=== PATIENT | male | born 1955 | race Caucasian/White ===

== ENCOUNTER → 2018-05-01 08:58 | Outpatient (CLI) | payer OTHER, MEDICAID, SELFPAY ==
[2018-05-01 09:38] LABS: Add Manual Diff / Slide Review NO; Basophils Percent Auto 1.2 % (0-2); Eosinophils Percent Auto 4.6 % (2-4); Hematocrit 46.7 % (41-53); Hemoglobin 16.4 g/dL (13.5-17.5); Lymphocytes Percent Auto 17.2 % (25-40); Mean Corpuscular HGB Conc 35.2 % (30-36); Mean Corpuscular Hemoglobin 31.6 PG (26-34); Mean Corpuscular Volume 89.8 fL (80-100); Monocytes Percent Auto 8.7 % (3-14); Neutrophils Absolute Auto 3300 /uL (1500-7000); Neutrophils Percent Auto 68.3 % (50-75); Platelet Count 205 X10^3/uL (150-400); White Blood Cell Count 4.9 X10^3/uL (4.5-11.0)
[2018-05-01 10:21] LABS: Appearance Urine UA CLEAR; Bilirubin Urine UA NEGATIVE (NEGATIVE); Color Urine UA YELLOW; Glucose Urine UA NEGATIVE (Normal); Ketones Urine UA NEGATIVE (NEGATIVE); Leukocyte Esterase Urine UA NEGATIVE (NEGATIVE); Nitrite Urine UA NEGATIVE (Negative); Occult Blood Urine UA NEGATIVE (Negative); Protein Urine UA NEGATIVE (Negative); Urobilinogen Urine UA 0.2 E.U./dL (0.2); pH Urine UA 7.5 (4.5-8.0)
[2018-05-01 10:36] LABS: Thyroid Stimulating Hormone 3.26 uIU/mL (0.47-4.68)
[2018-05-01 10:53] LABS: Alanine Aminotransferase 28 IU/L (21-72); Albumin Globulin Ratio 1.5 (1.0-2.8); Alkaline Phosphatase 69 U/L (38-126); Aspartate Aminotransferase 32 IU/L (17-59); Blood Urea Nitrogen 14 mg/dL (9-20); Calcium 9.5 mg/dL (8.4-10.2); Carbon Dioxide 27 mmol/L (22-32); Chloride 105 mmol/L (98-107); Cholesterol 143 mg/dL (140-199); Estimated Glomerular Filt Rate > 60.0 mL/min (>60); Globulin 2.7 g/dL (1.7-4.1); Glucose 91 mg/dL (80-110); HDL Cholesterol 40 mg/dL (40-60); LDL Cholesterol Calculated 87 mg/dL (<100); Potassium 4.8 mmol/L (3.4-5.1); Sodium 143 mmol/L (137-145); Total Protein 6.7 g/dL (6.3-8.2); Triglycerides 79 mg/dL (35-150)
[2018-05-01 11:26] LABS: HEMOLYSIS < 15 (0-50); Prostate Specific Antigen Scrn 3.07 ng/mL (0.1-4.0)
[2018-05-01 11:44] LABS: Vitamin B12 251 pg/mL (239-931)
== END ==
PROVIDERS: PCP Family Medicine; Visit Provider Family Medicine
DX: N40.0 Benign prostatic hyperplasia without lower urinary tract symptoms (principal); Z00.00 Encounter for general adult medical examination without abnormal findings; Z86.39 Personal history of other endocrine, nutritional and metabolic disease; Z13.220 Encounter for screening for lipoid disorders
CPT/HCPCS: 36415; 80053; 80061; 81003; 82607; 84443; 85025; G0103

== ENCOUNTER → 2018-07-31 09:05 | Outpatient (CLI) | payer OTHER, MEDICAID, SELFPAY ==
--- NOTE | 2018-07-31 09:06 | DI.RAD.S_ITS ---
PROCEDURE: XR RIBS LT MIN 3V W CXR1V INDICATIONS: left lower rib tenderness TECHNIQUE: 2 views of the left ribs were acquired, along with a single view chest. COMPARISON: None. FINDINGS: Surgical changes and devices: None. Bones and chest wall: Mildly displaced left anterior ninth rib fracture is present. No suspicious bony lesions. Overlying soft tissues appear unremarkable. Lungs and pleura: No pleural effusions or pneumothorax. Lungs appear clear. Mediastinum: Mediastinal contours appear normal. Heart size is normal. IMPRESSION: Mildly displaced left anterior ninth rib fracture. Dictated by: Lillian Reynoso M.D. on 07/31/2018 at 10:21 Approved by: Lillian Reynoso M.D. on 07/31/2018 at 10:24
== END ==
PROVIDERS: PCP Family Medicine; Visit Provider Physician Assistant
DX: R07.81 Pleurodynia (principal); S22.32XA Fracture of one rib, left side, initial encounter for closed fracture
CPT/HCPCS: 71101

== ENCOUNTER → 2020-01-07 14:04 | Outpatient (CLI) | payer OTHER, MEDICAID, SELFPAY ==
--- NOTE | 2020-01-07 14:07 | DI.RAD.S_ITS ---
PROCEDURE: XR HAND RT MIN 3V INDICATIONS: Pain in Right thumb TECHNIQUE: 3 views of the hand(s) acquired. COMPARISON: None. FINDINGS: Bones: No fractures or dislocations. Carpal bones are normally aligned. No suspicious bony lesions. Soft tissues: No suspicious soft tissue calcifications. IMPRESSION: No trauma found, source of pain in the thumb is not identified. Dictated by: Newton Shipley M.D. on 01/07/2020 at 15:58 Approved by: Newton Shipley M.D. on 01/07/2020 at 15:58
== END ==
PROVIDERS: PCP Family Medicine; Referring Provider Family Medicine; Visit Provider Family Medicine
DX: M79.644 Pain in right finger(s) (principal); G89.29 Other chronic pain
CPT/HCPCS: 73130

== ENCOUNTER → 2020-01-08 08:44 | Outpatient (CLI) | payer OTHER, MEDICAID, SELFPAY ==
[2020-01-08 09:29] LABS: Add Manual Diff / Slide Review NO; Basophils Absolute Auto 100 /uL (0-100); Basophils Percent Auto 1.2 % (0-2); Eosinophils Absolute Auto 200 /uL (0-450); Eosinophils Percent Auto 3.2 % (2-4); Hematocrit 48.7 % (41-53); Hemoglobin 17.1 g/dL (13.5-17.5); Lymphocytes Absolute Auto 900 /uL (1100-4500); Mean Corpuscular HGB Conc 35.1 % (30-36); Mean Corpuscular Hemoglobin 31.9 PG (26-34); Mean Corpuscular Volume 90.9 fL (80-100); Monocytes Absolute Auto 500 /uL (0-900); Monocytes Percent Auto 9.6 % (3-14); Neutrophils Absolute Auto 3400 /uL (1500-7000); Platelet Count 192 X10^3/uL (150-400); Red Blood Cell Count 5.35 X10^6/uL (4.5-5.9)
[2020-01-08 09:55] LABS: BUN Creatinine Ratio 17.1 (6-22); Blood Urea Nitrogen 19 mg/dL (9-20); Calcium 9.6 mg/dL (8.4-10.2); Carbon Dioxide 28 mmol/L (22-32); Chloride 105 mmol/L (98-107); Cholesterol 144 mg/dL (140-199); Estimated Glomerular Filt Rate > 60.0 mL/min (>60); Glucose 91 mg/dL (80-110); HDL Cholesterol 52 mg/dL (40-60); HEMOLYSIS < 15 (0-50); LDL Cholesterol Calculated 80 mg/dL (<100); Potassium 4.7 mmol/L (3.4-5.1); Sodium 138 mmol/L (137-145); Triglycerides 59 mg/dL (35-150)
== END ==
PROVIDERS: PCP Family Medicine; Referring Provider Family Medicine; Visit Provider Family Medicine
DX: Z13.220 Encounter for screening for lipoid disorders (principal)
CPT/HCPCS: 36415; 80048; 80061; 85025

== ENCOUNTER → 2020-05-17 13:24 | Outpatient (CLI) | payer OTHER, MEDICAID, SELFPAY ==
[2020-05-17 15:48] LABS: COVID19 -Nasal RAPID Negative (Negative)
== END ==
PROVIDERS: PCP Family Medicine; Visit Provider Surgery
DX: Z01.812 Encounter for preprocedural laboratory examination (principal); Z20.822 Contact with and (suspected) exposure to COVID-19
CPT/HCPCS: 87635; C9803

== ENCOUNTER 2020-05-19 12:46 | Day surgery (SDC) | payer OTHER, MEDICAID, SELFPAY ==
[2020-05-19] VITALS (7 sets, daily range): BP systolic 103–146; BP diastolic 60–83; PULSE 56–77; RESP 12–18; TEMP 36.4–37.1; O2SAT 95–100; BMI 25.8
[2020-05-19] MEDS: LACTATED RINGERS 1,000 ML 200 ML IV (13:30)
--- NOTE | 2020-05-19 14:03 | PM.HP.1 ---
History of Present Illness History of Present Illness Date Patient Seen: 05/19/20 Time Patient Seen: 14:03 Chief complaint: SCREENING COLONOSCOPY Narrative: The patient presents for colorectal sreening. He had previous colonoscopy normal 14 years ago. No personal or family history of colon cancer. On further history denies any recent gastrointestinal symptoms. No nausea, vomiting, abdominal pain, loss of appetite, unexplained weight loss, change in bowel habits, diarrhea, constipation, melena, hematochezia, or bright red blood per rectum. Patient History Medical History BPH loc w urin obs/LUTS Chicken pox Chronic pain of right thumb Elbow pain (~2019) Excessive cerumen in both ear canals Fractures Left elbow pain Mumps Normal physical examination, routine Screen for colon cancer Screening for hyperlipidemia Upper extremity somatic dysfunction Vision disorder Surgical History Anesthesia H/O knee surgery Hx of inguinal hernia surgery (~2010) Family & Social History Family History Father No problems noted. Mother No problems noted. Social History: household members spouse Tobacco & Substance use: Smoking Status Never smoker alcohol intake current alcohol intake frequency a few times a week Substance Use Type does not use Meds Home Medications and Allergies Home Medications Medication Instructions Recorded Confirmed Type tamsulosin 0.4 mg capsule 0.4 mg PO DAILY 07/31/18 05/19/20 History calcium phos,dibas-vitamin D3 1 tab PO DAILY 05/19/20 05/19/20 History [Vitamin D (with calcium)] Allergies Allergy/AdvReac Type Severity Reaction Status Date / Time peanut [PEANUT] Allergy Mild Hives Verified 05/19/20 13:28 walnut [WALNUT] Allergy Mild Hives Verified 05/19/20 13:28 egg Allergy Unknown Verified 05/19/20 13:28 ragweed pollen Allergy Unknown Verified 05/17/20 13:23 [RAGWEED POLLEN] Review of Systems Review of Systems Narrative: A 10 point review of systems is negative except as noted in the HPI Exam Vital Signs (past 8 hours): - 05/19/20 13:17 Temperature 98.0 F Pulse Rate 61 Respiratory Rate 15 Blood Pressure 146/83 H Pulse Oximetry 99 Oxygen Delivery Method Room Air Narrative Exam Narrative: General-no acute distress, well nourished adult male HEENT-moist mucous membranes, no scleral icterus Neck-supple, no lymphadenopathy Chest- non labored respirations, clear to auscultation bilaterally Cardiac-regular rate no peripheral edema Abdomen-soft, nontender, non distended Extremities-warm, well perfused Neurological-alert and oriented, no focal deficits Assessment & Plan Assessment & Plan narrative: The patient requires colorectal screening and colonoscopy is recommended. Technical details were discussed. Risks, benefits, alternatives explained. Risks including but not limited to myocardial infarction, aspiration, bleeding, pain, missed lesion, incomplete examination, need for further radiographic studies, colonic perforation, and need for major abdominal surgery were discussed. All questions were answered to their satisfaction, and they are in agreement with this plan.
[2020-05-19] MEDS: fentaNYL 250 MCG/5 ML INJ IV (14:36)
--- NOTE | 2020-05-19 14:36 | PM.OP.ENDO ---
Operative Date/Time/Diagnoses Date of procedure: 05/19/20 Time of procedure: 14:36 Pre-op diagnosis: screening colonoscopy Post-op diagnosis: same Procedure & Clinicians Study performed: Colonoscopy Same procedure as scheduled: Yes Indications: 64-year-old male last colonoscopy 14 years ago normal presents for routine screening Surgeon: Israel George Procedure Notes Procedure in detail: Medications: Conscious sedation using 8mg IV midazolam and 250mcg IV of fentanyl The history and physical was performed/updated and the patient is ASA class is 2. The procedure was discussed in detail with the patient. Potential risks complications including infection, bleeding, missed diagnosis, perforation, need for surgery, and were explained. Their questions were answered and informed consent was obtained. Patient was brought to the procedure room and placed standard monitoring equipment. The patient's vital signs were monitored continuously throughout the entire procedure. Prior to starting time-out was performed. The patient was placed in the left lateral recumbent position. Procedural sedation was administered. Examination began with a thorough inspection of the perianal area there was no evidence of fissures, fistulae, external hemorrhoids or cutaneous malignancy. The colonoscopy scope was then placed into the anal canal and was advanced to the cecum, which was identified by the ileocecal valve, the appendiceal orifice and the confluence of the taenia. The scope was then slowly withdrawn examining colon thoroughly in all directions, irrigating it of any residual stool. No masses or polyps Sigmoid diverticulosis The patient tolerated the procedure well. They will be discharged once criteria are met. The prep was of fair quality. The withdrawl time was 6 minutes. The sedation time was 19 minutes. Specimen(s): none sent Complications: none Impression: Diverticulosis Post-procedure Recommendations: Colonscopy in 10 years Disposition: same day surgery
[2020-05-19] MEDS: MIDAZOLAM 5 MG/5 ML VIAL IV (14:37)
--- NOTE | 2020-05-19 15:32 | SUR.PHASEII ---
pt stated he is fine to go home. Pt had 2 cups of juice. Denies any complaints and pt given discharge instructions.
== END 2020-05-19 15:24 | disposition home or self-care (01) ==
PROVIDERS: PCP Family Medicine; Referring Provider Surgery; Visit Provider Surgery
PROC: 0DJD8ZZ Inspection of Lower Intestinal Tract, Via Natural or Artificial Opening Endoscopic (ICD-10-PCS; CPT 45378; principal; 2020-05-19 13:45)
DX: Z12.11 Encounter for screening for malignant neoplasm of colon (principal); K57.30 Diverticulosis of large intestine without perforation or abscess without bleeding
CPT/HCPCS: 45378; 99152; J2250; J3010

== ENCOUNTER → 2021-10-12 09:07 | Outpatient (CLI) | payer MEDICARE, OTHER, MEDICAID, SELFPAY ==
--- NOTE | 2021-10-12 09:09 | DI.RAD.S_ITS ---
PROCEDURE: XR FINGER LT MIN 2V INDICATIONS: L ring finger P3 crush TECHNIQUE: PA hand, 2 views of the ring finger acquired. COMPARISON: None. FINDINGS: Bones: No acute fractures or dislocations. No suspicious bony lesions. Soft tissues: No suspicious soft tissue calcifications. IMPRESSION: No acute osseous abnormality. If clinical suspicion and/or symptoms persist, additional imaging with repeat plain films, or advanced imaging (e.g. CT, MRI) may be helpful for further assessment. Dictated by: Benigno Antony M.D. on 10/12/2021 at 9:39 Approved by: Benigno Antony M.D. on 10/12/2021 at 9:41
== END ==
PROVIDERS: PCP Family Medicine; Referring Provider Physician Assistant; Visit Provider Physician Assistant
DX: S67.195A Crushing injury of left ring finger, initial encounter (principal); W23.0XXA Caught, crushed, jammed, or pinched between moving objects, initial encounter
CPT/HCPCS: 73140

== ENCOUNTER → 2022-03-22 08:28 | Outpatient (CLI) | payer MEDICARE, OTHER, MEDICAID, SELFPAY ==
[2022-03-22 09:18] LABS: Add Manual Diff / Slide Review NO; Basophils Absolute Auto 0 /uL (0-100); Basophils Percent Auto 0.2 % (0-2); Eosinophils Absolute Auto 100 /uL (0-450); Eosinophils Percent Auto 2.4 % (2-4); Hematocrit 43.3 % (41-53); Hemoglobin 14.7 g/dL (13.5-17.5); Lymphocytes Absolute Auto 900 /uL (1100-4500); Lymphocytes Percent Auto 16.9 % (25-40); Mean Corpuscular Hemoglobin 30.1 PG (26-34); Mean Corpuscular Volume 88.6 fL (80-100); Monocytes Absolute Auto 500 /uL (0-900); Monocytes Percent Auto 10.4 % (3-14); Neutrophils Absolute Auto 3700 /uL (1500-7000); Neutrophils Percent Auto 70.1 % (50-75); Platelet Count 191 X10^3/uL (150-400); Red Blood Cell Count 4.89 X10^6/uL (4.5-5.9); Red Cell Distribution Width 13.1 % (11.6-14.8); White Blood Cell Count 5.2 X10^3/uL (4.5-11.0)
[2022-03-22 09:50] LABS: BUN Creatinine Ratio 13.1 (6-22); Blood Urea Nitrogen 13 mg/dL (9-20); Calcium 9.2 mg/dL (8.4-10.2); Carbon Dioxide 26 mmol/L (22-32); Chloride 103 mmol/L (98-107); Cholesterol 127 mg/dL (140-199); Estimated Glomerular Filt Rate > 60 mL/min (>60); Glucose 92 mg/dL (80-110); HDL Cholesterol 42 mg/dL (40-60); HEMOLYSIS < 15 (0-50); LDL Cholesterol Calculated 72 mg/dL (<100); Potassium 3.9 mmol/L (3.4-5.1); Sodium 138 mmol/L (137-145); Triglycerides 64 mg/dL (35-150)
[2022-03-22 10:21] LABS: Prostate Specific Antigen Scrn 3.46 ng/mL (0.1-4.0)
== END ==
PROVIDERS: PCP Family Medicine; Referring Provider Family Medicine; Visit Provider Family Medicine
DX: Z12.5 Encounter for screening for malignant neoplasm of prostate (principal); E78.00 Pure hypercholesterolemia, unspecified; Z13.220 Encounter for screening for lipoid disorders; N40.1 Benign prostatic hyperplasia with lower urinary tract symptoms
CPT/HCPCS: 36415; 80048; 80061; 85025; G0103

== ENCOUNTER 2023-04-19 11:15 | Outpatient (RCR) | payer MEDICARE, OTHER, SELFPAY ==
--- NOTE | 2023-04-08 11:56 | PT.OIE ---
Current Diagnoses Strain of muscle, fascia and tendon of left hip, initial encounter (04/08/23) Strain of muscle, fascia and tendon of left hip, subsequent encounter (04/08/23) Past Medical History (Last Updated 02/13/23 @ 12:02 by Sundeep Harper DO) BPH loc w urin obs/LUTS Chicken pox Chronic pain of right thumb Elbow pain (~2019) Excessive cerumen in both ear canals Fall from horse Fractures Hives of unknown origin Left elbow pain Mumps Normal physical examination, routine Numbness of finger Screen for colon cancer Screening for hyperlipidemia Sebaceous cyst Strain of left buttock Upper extremity somatic dysfunction Vision disorder Past Surgical History (Last Reviewed 10/12/21 @ 08:34 by Marina Palacios PA-C) Anesthesia H/O knee surgery Hx of inguinal hernia surgery (~2010) Visit Care Team Role Provider Type Sundeep Harper DO Attending Provider Physician Family Provider Primary Care Provider Referring Provider Specialty: [facility] Practice Address: [address] [place] [address], [facility] Email: Physical Therapy Initial Evaluation PT-OP-A Visit Information Start: 04/08/23 11:27 Freq: Status: Active Protocol: Document 04/08/23 10:30 DCW (Rec: 04/08/23 11:42 DCW [id number]) Out-Patient Physical Therapy Visit Information Visit Information Visit Type Initial Evaluation Visit Start Time 10:30 Visit Stop Time 11:15 Total Visit Minutes 45 Visit Number 1 Number of PROPERTY ASSESSMENT MONITOR Visits 0 Evaluation Information Evaluation Date 04/08/23 PT-OP-B Current Condition Start: 04/08/23 11:27 Freq: Status: Active Protocol: Document 04/08/23 10:30 DCW (Rec: 04/08/23 11:42 DC [id number]) Current Condition History of Current Condition Onset Date Multi-year history Current Complaints Hip pain with intense exercise History of Current Condition Pt is a 67 year old male presenting with a long- standing history of left hip pain, especially with intense exercise, specifically distance running. Pt notes his initial injury was getting thrown from a horse. At the time, pt received x-rays, and a few years later had a diagnostic ultrasound, but there does not appear to be a record of any imaging available. Pt reports at rest or with less intense exercise, he has no pain. Will start to have twinges of pain with a 5K distance, but much more severe pain when dealing with distances 10K or longer. Had severe pain following a 9 mile race this past January. Pt points out a very notable bulge of soft tissue on his left glute, unclear of the cause, pt notes it has been there since initial injury. Does not want to give up running. Treatment Goals Patient/Caregiver Goals Running long distances with decreased pain PT-OP-C Subjective Start: 04/08/23 11:27 Freq: Status: Active Protocol: Document 04/08/23 10:30 DCW (Rec: 04/08/23 11:42 DCW [id number]) OP-PT Subjective Patient Comments Patient Comments If it gets to the point where I need to give up running and transition to something like biking or swimming, I think I can do that, but I don't think I'm there yet. PT-OP-F Manual Assessment Start: 04/08/23 11:27 Freq: Status: Active Protocol: Document 04/08/23 10:30 DCW (Rec: 04/08/23 11:42 DCW [id number]) Manual Assessments Soft Tissue Assessment Soft Tissue Mobility Assessment Large soft tissue bulge approximately 15 cm round at left posterior hip, in area of PSIS PT-OP-L Special Tests Start: 04/08/23 11:27 Freq: Status: Active Protocol: Document 04/08/23 10:30 DCW (Rec: 04/08/23 11:44 DCW [id number]) Special Tests Hip Special Tests Corwin Test Results Hip flexor tightness bilaterally Straight Leg Raise Test Results Hamstring tightness bilaterally Scour Test Test Results Negative Piriformis Test Results Piriformis tightness bilaterally DONTE Test Results Negative PT-OP-M Strength Start: 04/08/23 11:27 Freq: Status: Active Protocol: Document 04/08/23 10:30 DCW (Rec: 04/08/23 11:44 DCW [id number]) Hip Strength Hip Manual Muscle Testing Right Flexion (L2) 5 Normal Extension (S1) 5 Normal Abduction 5 Normal Adduction 5 Normal External Rotation 5 Normal Internal Rotation 5 Normal Left Flexion (L2) 5 Normal Extension (S1) 5 Normal Abduction 5 Normal Adduction 5 Normal External Rotation 5 Normal Internal Rotation 5 Normal PT-OP-Q Treatments Start: 04/08/23 11:27 Freq: Status: Active Protocol: Document 04/08/23 10:30 DCW (Rec: 04/08/23 11:46 DCW [id number]) Therapeutic Exercises Supine Exercises Corwin Supine Exercise Name Hip flexor stretch Side left Piriformis stretch Supine Exercise Name Figure-4, Knee to opposite shoulder Side left Hamstring stretch Supine Exercise Name HS stretch /c strap Side left Sitting Exercises Piriformis stretch Sitting Exercise Name Seated figure-4 Side left Hamstring stretch Sitting Exercise Name Seated HS stretch Side left Standing Exercises Hip Flexor Standing Exercise Name Half-kneeling lunge Side left PT-OP-T Assessment and Plan Start: 04/08/23 11:27 Freq: Status: Active Protocol: Document 04/08/23 10:30 DCW (Rec: 04/08/23 11:56 DCW [id number]) Physical Therapy Assessment Rehab Potential Rehabilitation Potential Good Evaluation Complexity Number of Personal Factors/Comorbidities 0 Number of Body Systems Impaired 1-2 Clinical Presentation at Evaluation Stable Impairments Impairments Pain,ROM,Soft Tissue Mobility Goals Two Impairment Pt experiences severe left hip pain following runs 10K + Waistband Setter Lockstitch Goal (LTG) Pt to complete a 10K run with left hip pain <4/10 LTG Duration 06/09/23 One Impairment Pt does not perform an appropriate stretching program Short Term Goal (STG) Pt to be independent and compliant with an appropriate HEP post-race and during rest days STG Duration 05/09/23 Assessment Summary Assessment Pt evaluation largely negative today, as pain really only appears to flare up following a longer-distance run. Pt does appear to have some significant bilateral limitations in hip ROM secondary to moderate soft- tissue tone, and will likely benefit from a regular stretching program. Spent time today discussing importance of holding stretch an appropriate length of time, in addition to limiting pre-run warm-ups to more dynamic movements and saving stretching for post-run and off-days. Unclear cause of soft-tissue bulge in left posterior hip, feels like a fatty deposit, but pt may benefit from further advanced imaging to determine cause of bulge. Pt agreeable to work on independent stretching and return in 1-2 weeks to report if symptoms are decreasing during runs. Physical Therapy Plan Frequency and Duration Frequency of Treatment 1x/Week Plan of Care Start Date 04/08/23 Plan of Care End Date 06/09/23 Therapeutic Interventions Therapeutic Interventions Home Exercise Program,Manual Therapy,Patient/Caregiver Education,Self-Care/Home Management,Soft Tissue Mobilization,Therapeutic Activities,Therapeutic Exercises Next Visit Focus/Plan Next Note Type Treatment Note Next Visit Plan Adjustments to HEP as needed, pt education, potentially assessment of running gait
--- NOTE | 2023-04-08 11:57 | PT.OPPOC ---
Physical, Occupational & Speech Therapy At [facility] Current Diagnoses Strain of muscle, fascia and tendon of left hip, initial encounter (04/08/23) Strain of muscle, fascia and tendon of left hip, subsequent encounter (04/08/23) Visit Care Team Role Provider Type Sundeep Harper DO Attending Provider Physician Family Provider Primary Care Provider Referring Provider Specialty: Family Practice Address: [address] [place] [address], [facility] Email: Plan Of Care PT-OP-T Assessment and Plan Start: 04/08/23 11:27 Freq: Status: Active Protocol: Document 04/08/23 10:30 DCW (Rec: 04/08/23 11:56 DCW [id number]) Physical Therapy Assessment Rehab Potential Rehabilitation Potential Good Evaluation Complexity Number of Personal Factors/Comorbidities 0 Number of Body Systems Impaired 1-2 Clinical Presentation at Evaluation Stable Impairments Impairments Pain,ROM,Soft Tissue Mobility Goals Two Impairment Pt experiences severe left hip pain following runs 10K + Usp Goal (LTG) Pt to complete a 10K run with left hip pain <4/10 LTG Duration 06/09/23 One Impairment Pt does not perform an appropriate stretching program Short Term Goal (STG) Pt to be independent and compliant with an appropriate HEP post-race and during rest days STG Duration 05/09/23 Assessment Summary Assessment Pt evaluation largely negative today, as pain really only appears to flare up following a longer-distance run. Pt does appear to have some significant bilateral limitations in hip ROM secondary to moderate soft- tissue tone, and will likely benefit from a regular stretching program. Spent time today discussing importance of holding stretch an appropriate length of time, in addition to limiting pre-run warm-ups to more dynamic movements and saving stretching for post-run and off-days. Unclear cause of soft-tissue bulge in left posterior hip, feels like a fatty deposit, but pt may benefit from further advanced imaging to determine cause of bulge. Pt agreeable to work on independent stretching and return in 1-2 weeks to report if symptoms are decreasing during runs. Physical Therapy Plan Frequency and Duration Frequency of Treatment 1x/Week Plan of Care Start Date 04/08/23 Plan of Care End Date 06/09/23 Therapeutic Interventions Therapeutic Interventions Home Exercise Program,Manual Therapy,Patient/Caregiver Education,Self-Care/Home Management,Soft Tissue Mobilization,Therapeutic Activities,Therapeutic Exercises Next Visit Focus/Plan Next Note Type Treatment Note Next Visit Plan Adjustments to HEP as needed, pt education, potentially assessment of running gait Plan of Care Dates Plan of Care Start Date 04/08/23 Plan of Care End Date 06/09/23 Electronically Signed by: Marc Gillette, PT 04/08/23 [id number] If you are in agreement with this Plan of Care, please return a signed and dated copy. I have reviewed this Plan of Care and certify that the skilled therapy services above are required to meet the patient?s needs. Physician Signature Date Printed Name and Credentials Clinical Instructor Signature Printed Name and Credentials
--- NOTE | 2023-04-19 12:31 | PT.OTN ---
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 Pt notes his initial injury was getting thrown from a horse. At the time, pt received x-rays, and a few years later had a diagnostic ultrasound, but there does not appear to be a record of any imaging available. Pt reports at rest or with less intense exercise, he has no pain. Will start to have twinges of pain with a 5K distance, but much more severe pain when dealing with distances 10K or longer. Had severe pain following a 9 mile race this past January. Pt points out a very notable bulge of soft tissue on his left glute, unclear of the cause, pt notes it has been there since initial injury. Does not want to give up running. Treatment Goals Patient/Caregiver Goals Running long distances with decreased pain PT-OP-C Subjective Start: 04/08/23 11:27 Freq: Status: Active Protocol: Document 04/19/23 11:25 NBM (Rec: 04/19/23 12:29 NBM [id number]) OP-PT Subjective Patient Comments Patient Comments Pt brings in article of pain- [facility] and is interested to follow up with them. He reports hip is okay today and he hasn't run long enough to notice yet if stretching HEP is helping to decrease pain with running. He didn't sleep well due to pain in subdermal cyst in his midback which reached 8/10 pain last night but loosened with short run today, and is now 3/10. He stretches before runs but never after. PT-OP-F Manual Assessment Start: 04/08/23 11:27 Freq: Status: Active Protocol: Document 04/08/23 10:30 DCW (Rec: 04/08/23 11:42 DCW [id number]) Manual Assessments Soft Tissue Assessment Soft Tissue Mobility Assessment Large soft tissue bulge approximately 15 cm round at left posterior hip, in area of PSIS PT-OP-L Special Tests Start: 04/08/23 11:27 Freq: Status: Active Protocol: Document 04/08/23 10:30 DCW (Rec: 04/08/23 11:44 DCW [id number]) Special Tests Hip Special Tests Corwin Test Results Hip flexor tightness bilaterally Straight Leg Raise Test Results Hamstring tightness bilaterally Scour Test Test Results Negative Piriformis Test Results Piriformis tightness bilaterally DONTE Test Results Negative PT-OP-M Strength Start: 04/08/23 11:27 Freq: Status: Active Protocol: Document 04/08/23 10:30 DCW (Rec: 04/08/23 11:44 DCW [id number]) Hip Strength Hip Manual Muscle Testing Right Flexion (L2) 5 Normal Extension (S1) 5 Normal Abduction 5 Normal Adduction 5 Normal External Rotation 5 Normal Internal Rotation 5 Normal Left Flexion (L2) 5 Normal Extension (S1) 5 Normal Abduction 5 Normal Adduction 5 Normal External Rotation 5 Normal Internal Rotation 5 Normal PT-OP-Q Treatments Start: 04/08/23 11:27 Freq: Status: Active Protocol: Document 04/19/23 11:25 NBM (Rec: 04/19/23 12:29 NBM [id number]) Cardio Equipment Bicycle (Upright) Duration (Minutes) 11 Resistance 8>10 Seat Position 6 Other Pt cued for minimal lateral shift Therapeutic Exercises Sitting Exercises Piriformis stretch Sitting Exercise Name Seated figure-4 Side bilateral Reps/Minutes 5-8 breaths ea Comments cues for pain-free range, gentle pull Hamstring stretch Sitting Exercise Name Seated HS stretch Side bilateral Reps/Minutes 30-45s ea Comments L HS cramp improves. Cues for no bouncing. Standing Exercises Hip Flexor Standing Exercise Name Half-kneeling lunge Side bilateral Equipment Used chair, wall (to simulate tree after runs) Reps/Minutes 30s Comments cues for tucking tailbone under, wall dc d/t L HS cramp w/ knee flexion Manual Therapy Treatment Soft Tissue Mobilization LEs Body Location jg Quads, HS, Gastrocnemius and Soleus Mobilization Type Instrument Assisted,Other Intensity/Depth mod Body Position seated Comments Pt i/s in self- STM with rolling pin to LEs. Pt expresses particularly sore in distal HS insertions Bilaterally. Self-Care/Home Management Treatment Education Patient Education Body Mechanics,Home Exercise Program,Pain Management Other Education Pt is encouraged to stretch after activity, avoid ballistic bouncing stretching, stretch in pain- free range only instead of pushing into pain, and hold at least 30s or 5-8 breaths for carryover of decreased muscle tension. -Discussed briefly strengthening into new range of motion. PT-OP-T Assessment and Plan Start: 04/08/23 11:27 Freq: Status: Active Protocol: Document 04/19/23 11:25 [facility] (Rec: 04/19/23 12:29 [facility] [id number]) Physical Therapy Assessment Goals Two Impairment Pt experiences severe left hip pain following runs 10K + Usp Goal (LTG) Pt to complete a 10K run with left hip pain <4/10 LTG Duration 06/09/23 One Impairment Pt does not perform an appropriate stretching program Short Term Goal (STG) Pt to be independent and compliant with an appropriate HEP post-race and during rest days STG Duration 05/09/23 Assessment Summary Assessment Pt presents w07/13 mid-back pain due to subdermal cyst apparently unrelated to PT diagnosis for L hip; pt has appointment with dermatology to address Saturday. PT treatment focus on seated/ standing HEP stretching review , education and self-STM to LEs w/ rolling pin. Pt is encouraged to stretch after activity, avoid ballistic bouncing stretching which he requires cues for initially, stretch in pain-free range instead of pushing into pain, and hold at least 30s or 5-8 breaths for carryover of decreased tension. He requires occasional cues for breath due to breathholding. After warmup on upright bicycle pt has L hamstring cramp when liftng LLE into knee flexion for hip flexor stretch and requires cues to perform HS stretch rather than ignore pain. End of session pt is able to demonstrate appropriate form and hold time in seated HS and piriformis stretches in pain-free range without cueing and self- awareness improves of increasing pain-free range during hold. Physical Therapy Plan Frequency and Duration Frequency of Treatment 1x/Week Plan of Care Start Date 04/08/23 Plan of Care End Date 06/09/23 Therapeutic Interventions Therapeutic Interventions Home Exercise Program,Manual Therapy,Patient/Caregiver Education,Self-Care/Home Management,Soft Tissue Mobilization,Therapeutic Activities,Therapeutic Exercises Next Visit Focus/Plan Next Note Type Treatment Note Next Visit Plan Adjustments to HEP as needed, pt education, potentially assessment of running gait
--- NOTE | 2023-06-10 16:25 | PT.OPDS ---
Current Diagnoses Strain of muscle, fascia and tendon of left hip, subsequent encounter (04/19/23) Visit Care Team Role Provider Type Sundeep Harper DO Attending Provider Physician Family Provider Primary Care Provider Referring Provider Specialty: Family Practice Address: [address] [place] [address], [facility] Email: Visit Number Visit Number 2 Discharge Summary PT-OP-B Current Condition Start: 04/08/23 11:27 Freq: Status: Active Protocol: Document 04/08/23 10:30 DCW (Rec: 04/08/23 11:42 DCW [id number]) Current Condition History of Current Condition Onset Date Multi-year history Current Complaints Hip pain with intense exercise History of Current Condition Pt is a 67 year old male presenting with a long- standing history of left hip pain, especially with intense exercise, specifically distance running. Pt notes his initial injury was getting thrown from a horse. At the time, pt received x-rays, and a few years later had a diagnostic ultrasound, but there does not appear to be a record of any imaging available. Pt reports at rest or with less intense exercise, he has no pain. Will start to have twinges of pain with a 5K distance, but much more severe pain when dealing with distances 10K or longer. Had severe pain following a 9 mile race this past January. Pt points out a very notable bulge of soft tissue on his left glute, unclear of the cause, pt notes it has been there since initial injury. Does not want to give up running. Treatment Goals Patient/Caregiver Goals Running long distances with decreased pain PT-OP-C Subjective Start: 04/08/23 11:27 Freq: Status: Active Protocol: Document 04/19/23 11:25 NBM (Rec: 04/19/23 12:29 NBM [id number]) OP-PT Subjective Patient Comments Patient Comments Pt brings in article of pain- intervention options at [facility] and is interested to follow up with them. He reports hip is okay today and he hasn't run long enough to notice yet if stretching HEP is helping to decrease pain with running. He didn't sleep well due to pain in subdermal cyst in his midback which reached 8/10 pain last night but loosened with short run today, and is now 3/10. He stretches before runs but never after. PT-OP-F Manual Assessment Start: 04/08/23 11:27 Freq: Status: Active Protocol: Document 04/08/23 10:30 DCW (Rec: 04/08/23 11:42 DCW [id number]) Manual Assessments Soft Tissue Assessment Soft Tissue Mobility Assessment Large soft tissue bulge approximately 15 cm round at left posterior hip, in area of PSIS PT-OP-L Special Tests Start: 04/08/23 11:27 Freq: Status: Active Protocol: Document 04/08/23 10:30 DCW (Rec: 04/08/23 11:44 DCW [id number]) Special Tests Hip Special Tests Corwin Test Results Hip flexor tightness bilaterally Straight Leg Raise Test Results Hamstring tightness bilaterally Scour Test Test Results Negative Piriformis Test Results Piriformis tightness bilaterally DONTE Test Results Negative PT-OP-M Strength Start: 04/08/23 11:27 Freq: Status: Active Protocol: Document 04/08/23 10:30 DCW (Rec: 04/08/23 11:44 DCW [id number]) Hip Strength Hip Manual Muscle Testing Right Flexion (L2) 5 Normal Extension (S1) 5 Normal Abduction 5 Normal Adduction 5 Normal External Rotation 5 Normal Internal Rotation 5 Normal Left Flexion (L2) 5 Normal Extension (S1) 5 Normal Abduction 5 Normal Adduction 5 Normal External Rotation 5 Normal Internal Rotation 5 Normal PT-OP-T Assessment and Plan Start: 04/08/23 11:27 Freq: Status: Active Protocol: Document 06/10/23 16:23 DCW (Rec: 06/10/23 16:24 DCW [id number]) Physical Therapy Assessment Assessment Summary Assessment Pt has not been seen in more than 50 days, has no further follow-up visits scheduled. Pt will be discharged from skilled therapy at this time, will require a new referral in order to return in the future . Physical Therapy Plan Discharge Physical Therapy Discharge Reasons No Longer Attending PT
== END 2023-06-12 10:21 | disposition home or self-care (01) ==
LOC: PHYS 11:15
PROVIDERS: Family Provider Family Medicine; PCP Family Medicine; Referring Provider Family Medicine; Visit Provider Family Medicine
DX: S76.012D Strain of muscle, fascia and tendon of left hip, subsequent encounter
CPT/HCPCS: 97110; 97140; 97161; 97535

== ENCOUNTER → 2023-04-22 14:47 | Outpatient (ROUT) | payer MEDICARE, OTHER, SELFPAY | PROVIDERS: Family Provider Family Medicine; PCP Family Medicine; Visit Provider Dermatology | DX: L57.8 Other skin changes due to chronic exposure to nonionizing radiation (principal); X32.XXXA Exposure to sunlight, initial encounter | CPT/HCPCS: 87070; 87075; 87077; 87147; 87186; 87205 ==

== ENCOUNTER → 2023-09-20 08:08 | Outpatient (CLI) | payer MEDICARE, OTHER, SELFPAY ==
[2023-09-20 15:46] LABS: BUN Creatinine Ratio 12.5 (6-22); Blood Urea Nitrogen 13 mg/dL (9-20); Calcium 9.8 mg/dL (8.4-10.2); Carbon Dioxide 23 mmol/L (22-32); Chloride 109 mmol/L (98-107); Estimated Glomerular Filt Rate > 60 mL/min (>60); Glucose 88 mg/dL (80-110); Potassium 4.2 mmol/L (3.4-5.1); Sodium 142 mmol/L (137-145)
[2023-09-20 17:21] LABS: HEMOLYSIS < 15 (0-50); Vitamin B12 Reflex MMA if <400 209 pg/mL (239-931)
[2023-09-26 01:36] LABS: Methylmalonic Acid,Serum 247 nmol/L (0-378)
== END ==
PROVIDERS: Family Provider Family Medicine; PCP Family Medicine; Referring Provider Family Medicine; Visit Provider Family Medicine
DX: R42 Dizziness and giddiness (principal); Z78.9 Other specified health status
CPT/HCPCS: 36415; 80048; 82607; 83921